=== PATIENT | male | born 1965 | race American Indian/Alaskan Native ===

== ENCOUNTER 2016-12-02 08:15 | Emergency (ER) | payer MEDICARE ==
[2016-12-02 08:46] LABS: Basophils % (Auto) 0.6 % (0.0-1.8); Eosinophils % (Auto) 2.3 % (0.0-4.3); Hematocrit 41.9 % (35.5-45.6); Hemoglobin 14.2 gm/dl (11.8-15.2); Mean Corpuscular HGB Conc 34 % (32-34); Mean Corpuscular Hemoglobin 29 pg (28-32); Mean Corpuscular Volume 86 fl (84-94); Platelet Count 185 K/mm3 (140-440); Red Blood Count 4.91 M/mm3 (3.65-5.03); Red Cell Distribution Width 13.1 % (13.2-15.2); White Blood Count 4.3 K/mm3 (4.5-11.0)
[2016-12-02 09:11] LABS: Blood Urea Nitrogen 11 mg/dL (9-20); Carbon Dioxide 26 mmol/L (22-30); Glucose 94 mg/dL (75-100)
[2016-12-02 09:12] LABS: Anion Gap 17 mmol/L; Calcium 9.7 mg/dL (8.4-10.2); Chloride 100.6 mmol/L (98-107); Potassium 4.8 mmol/L (3.6-5.0); Sodium 139 mmol/L (137-145)
[2016-12-02 13:38] VITALS: BP 145/96
== END 2016-12-02 14:00 | disposition left against medical advice (07) ==
LOC: ED 08:15
DX: R07.89 Other chest pain (principal); M25.511 Pain in right shoulder; R20.2 Paresthesia of skin; Z53.21 Procedure and treatment not carried out due to patient leaving prior to being seen by health care provider
CPT/HCPCS: 36415; 80048; 84484; 85025; 93005; 93010

== ENCOUNTER 2018-03-11 17:37 | Emergency (ER) | payer MEDICARE ==
[2018-03-11 18:23] VITALS: BP 125/81
== END 2018-03-11 18:24 | disposition left against medical advice (07) ==
LOC: ED 17:37
DX: M25.521 Pain in right elbow (principal); Z53.21 Procedure and treatment not carried out due to patient leaving prior to being seen by health care provider